=== PATIENT | male | born 2000 | race Two or more races ===

== ENCOUNTER 2022-10-05 15:59 | Emergency (ER) | payer MEDICAID, OTHER ==
[~2022-10-05] VITALS: Ht 180.3 cm; Wt 66.0 kg
[2022-10-05] MEDS ORDERED: CEPH-510 PO (16:37)
[2022-10-05] MEDS ORDERED: IBU600T PO (16:37)
[2022-10-05 17:12] LABS: Urine Bacteria NONE SEEN /hpf (None Seen); Urine Blood Negative /uL (Negative); Urine Mucus FEW (None Seen); Urine Specific Gravity 1.031 (1.001-1.035); Urine WBC <1 /hpf (0 - 3)
[2022-10-05] MEDS ORDERED: cefTRIAXone SOD 1,000 MG VL IM ONE (17:15)
[2022-10-05 17:20] VITALS: BP 110/57
== END 2022-10-05 17:29 | disposition home or self-care (01) ==
LOC: ER 15:59
DX: N45.1 Epididymitis (principal); Z77.22 Contact with and (suspected) exposure to environmental tobacco smoke (acute) (chronic); Z88.6 Allergy status to analgesic agent
CPT/HCPCS: 76870; 81001; 96372; 99285; J0696